=== PATIENT | female | born 1985 | race Caucasian/White ===

== ENCOUNTER 2017-03-18 09:06 | Emergency (ER) | payer MEDICAID ==
[2017-03-18] MEDS ORDERED: NORMAL SALINE 1000 ML 1,000 ML IV ONE (09:31)
[2017-03-18] MEDS ORDERED: OXYCODONE-ACETAMINOPHEN 5-325 MG TABLET PO ONE (09:31)
--- NOTE | 2017-03-18 09:32 | ER Document Report ---
ED Medical Screen (RME) - General Chief Complaint: Flank Pain Stated Complaint: LEFT SIDE BACK AND FLANK PAIN Time Seen by Provider: 03/18/17 09:29 Notes: 32-year-old female with history of Crohn's who presents with 2 days of right flank pain radiating to right lower quadrant. She states nausea and vomiting without fevers or dysuria. No diarrhea. No blood in the stool. No history of kidney stones. Patient denies missing any menstrual periods. TRAVEL OUTSIDE OF THE [place] IN LAST 30 DAYS: No - Related Data Allergies/Adverse Reactions: No Known Allergies Allergy (Verified 03/18/17 09:08) Past Medical History Pulmonary Medical History: Reports: Hx Asthma Denies: Hx Tuberculosis Renal/ Medical History: Denies: Hx Peritoneal Dialysis GI Medical History: Reports: Hx Crohn's Disease - Immunizations Hx Diphtheria, Pertussis, Tetanus Vaccination: Yes Physical Exam - Vital signs Vitals: Temp Pulse Resp BP Pulse Ox 98.6 F 118 H 16 147/84 H 96 03/18/17 09:11 03/18/17 09:11 03/18/17 09:11 03/18/17 09:11 03/18/17 09:11 Course - Vital Signs Vital signs: Temp Pulse Resp BP Pulse Ox 98.6 F 118 H 16 147/84 H 96 03/18/17 09:11 03/18/17 09:11 03/18/17 09:11 03/18/17 09:11 03/18/17 09:11
--- NOTE | 2017-03-18 10:06 | ER Document Report ---
ED GI/ - General Chief Complaint: Flank Pain Stated Complaint: LEFT SIDE BACK AND FLANK PAIN Time Seen by Provider: 03/18/17 09:29 Mode of Arrival: Ambulatory Information source: Patient TRAVEL OUTSIDE OF THE [place] IN LAST 30 DAYS: No - HPI Notes: 03/18/17 10:05 This is a 32-year-old female with history of Crohn's disease who presents with right flank and right lower abdominal pain starting last couple of days becoming severe last night at 1 AM. She's had nausea and vomiting associated with it. Describes it as a constant stabbing type pain that is severe radiating from the right flank to the right abdomen. No dysuria or hematuria. She has chronic constipation but no current blood in her stool noted. Denies fever but has had some chills and tremors. Further denies cough cold symptoms rhinorrhea sore throat chest pain and breathing difficulty Extremity edema - Related Data Allergies/Adverse Reactions: No Known Allergies Allergy (Verified 03/18/17 09:08) Past Medical History - Social History Smoking Status: Current Some Day Smoker Family History: Reviewed & Not Pertinent Patient has suicidal ideation: No Patient has homicidal ideation: No Pulmonary Medical History: Reports: Hx Asthma Denies: Hx Tuberculosis Renal/ Medical History: Denies: Hx Peritoneal Dialysis GI Medical History: Reports: Hx Crohn's Disease Past Surgical History: Denies: Hx Abdominal Surgery, Hx Hysterectomy - Immunizations Hx Diphtheria, Pertussis, Tetanus Vaccination: Yes Review of Systems - Review of Systems -: Yes All other systems reviewed and negative Physical Exam - Vital signs Vitals: Temp Pulse Resp BP Pulse Ox 98.6 F 118 H 16 147/84 H 96 03/18/17 09:11 03/18/17 09:11 03/18/17 09:11 03/18/17 09:11 03/18/17 09:11 Interpretation: Tachycardic - Notes Notes: GENERAL: VS as per nursing doc. Well-appearing, well-nourished and in no acute distress. HEAD: Atraumatic, normocephalic. EYES: Pupils equal round and reactive to light, extraocular movements intact, sclera anicteric, no conjunctival injection or discharge. ENT: Nares patent, oropharynx clear without exudates, slightly dry mucous membranes. NECK: Normal range of motion, supple without lymphadenopathy. LUNGS: Breath sounds clear to auscultation bilaterally and equal. No wheezes rales or rhonchi. HEART: Regular rate and rhythm without murmurs. ABDOMEN: Soft, tenderness in the right CVA region to the right mid and lower abdomen. Normal Bowel sounds. No guarding, no rebound. No masses appreciated. No [place] sign. BACK: Moderate right CVA tenderness. EXTREMITIES: Normal range of motion, no calf tenderness, no edema. NEUROLOGICAL: Cranial nerves grossly intact. Normal speech. Normal sensory and motor exams. No gross cerebellar abnormalities. PSYCH: Normal mood, normal affect. SKIN: Warm, dry, normal turgor, no lesions noted. Course - Vital Signs Vital signs: Temp Pulse Resp BP Pulse Ox 98.6 F 118 H 16 147/84 H 96 03/18/17 09:11 03/18/17 09:11 03/18/17 09:11 03/18/17 09:11 03/18/17 09:11
[2017-03-18] MEDS ORDERED: HYDROMORPHONE HCL INJ/PF 2 MG/ML AMPULE IV ONE (10:08)
[2017-03-18] MEDS ORDERED: ONDANSETRON HCL INJ/PF 4 MG/2 ML SDV IV ONE ×2 (10:08→11:16)
[2017-03-18 10:24] LABS: APPEARANCE,URINE SLIGHTLY-CLOUDY; BILIRUBIN,URINE NEGATIVE (NEGATIVE); GLUCOSE, URINE NEGATIVE (NEGATIVE); KETONES,URINE NEGATIVE (NEGATIVE); LEUKOCYTE ESTERASE,URINE MODERATE (NEGATIVE); NITRITE,URINE POSITIVE (NEGATIVE); PROTEIN,URINE 100 mg/dL (NEGATIVE); UROBILINOGEN,URINE NEGATIVE mg/dL (<2.0)
[2017-03-18 10:28] LABS: ABSOLUTE EOSINOPHILS # (AUTO) 0.2 10^3/uL (0.0-0.6); ABSOLUTE LYMPHOCYTES (AUTO) 0.9 10^3/uL (0.5-4.7); ABSOLUTE NEUT (AUTO) 13.2 10^3/uL (1.7-8.2); BASOPHILS % (AUTO) 0.2 % (0-2); EOSINOPHILS % (AUTO) 1.5 % (0-6); HEMATOCRIT 36.8 % (36.0-47.0); HEMOGLOBIN 12.1 g/dL (12.0-15.5); HGB HCT DIFFERENCE -0.5; LYMPHOCYTES % (AUTO) 5.8 % (13-45); MEAN CORPUSCULAR HEMOGLOBIN 29.1 pg (27.0-33.4); MEAN CORPUSCULAR HGB CONC 32.8 g/dL (32.0-36.0); MEAN CORPUSCULAR VOLUME 89 fl (80-97); MONOCYTES % (AUTO) 6.4 % (3-13); RED BLOOD COUNT 4.14 10^6/uL (3.72-5.28); RED CELL DISTRIBUTION WIDTH 14.5 % (11.5-14.0); SEGMENTED NEUTROPHILS % (AUTO) 86.1 % (42-78); WHITE BLOOD COUNT 15.4 10^3/uL (4.0-10.5)
[2017-03-18 10:29] LABS: ALANINE AMINOTRANSFERASE 20 U/L (9-52); ALBUMIN 4.3 g/dL (3.5-5.0); ALKALINE PHOSPHATASE 87 U/L (38-126); ANION GAP 11 (5-19); ASPARTATE AMINO TRANSFERASE 11 U/L (14-36); BILIRUBIN,DIRECT 0.4 mg/dL (0.0-0.4); BILIRUBIN,TOTAL 0.6 mg/dL (0.2-1.3); BLOOD UREA NITROGEN 8 mg/dL (7-20); CALCIUM 9.8 mg/dL (8.4-10.2); CARBON DIOXIDE 22 mmol/L (22-30); CHLORIDE 107 mmol/L (98-107); CREATININE RESULT 0.66 mg/dL (0.52-1.25); GLUCOSE 104 mg/dL (75-110); LIPASE 86.1 U/L (23-300); POTASSIUM 4.3 mmol/L (3.6-5.0); SODIUM 139.8 mmol/L (137-145); TOTAL PROTEIN 7.7 g/dL (6.3-8.2)
[2017-03-18] MEDS ORDERED: CIPROFLOXACIN HCL 500 MG TABLET PO ONE (10:47)
[2017-03-18] MEDS ORDERED: KETOROLAC TROMETHAMINE INJ/PF 30 MG/1 ML SDV IV ONE (11:16)
[2017-03-18 11:41] VITALS: BP 104/56
== END 2017-03-18 11:42 | disposition home or self-care (01) ==
LOC: ER 09:06
DX: N12 Tubulo-interstitial nephritis, not specified as acute or chronic (principal); R10.9 Unspecified abdominal pain; M54.9 Dorsalgia, unspecified; F17.200 Nicotine dependence, unspecified, uncomplicated
CPT/HCPCS: 99284; 96374; 96375; 36415; 87086; 83690; 85025; 81025; 87088; 80053; 81001; 87186; 74176; J3490; J1885; J1170; J2405

== ENCOUNTER 2019-12-02 17:41 | Emergency (ER) | payer SELFPAY ==
[2019-12-02] MEDS ORDERED: ONDANSETRON 4 MG TAB.RAPDIS PO ONE (19:16)
[2019-12-02] MEDS ORDERED: KETOROLAC TROMETHAMINE 60 MG/2 ML SDV IM ONE (19:16)
--- NOTE | 2019-12-02 19:16 | ER Document Report ---
ED Medical Screen (RME) - General Chief Complaint: Nausea/Vomiting Stated Complaint: THROAT/EAR PAIN,NAUSEA/VOMITING Time Seen by Provider: 12/02/19 19:12 Primary Care Provider: JOVANNI HURTADO MD [Primary Care Provider] - Follow up as needed Mode of Arrival: Ambulatory Information source: Patient Notes: 34-year-old female presented to ED for complaint of sore throat and earache 2 nights ago. She states by morning the pain was severe. She states she has had nausea and vomiting all day today. She states the pain is still severe to her nose and throat. She states she does not know of any fevers. He states she has been throwing up every time she tries to eat or drink today. We will get blood urine and throat culture and have examined by another provider. Will treat with Toradol IM Zofran ODT in the pit area. She states she is on her menstrual cycle right now. I have greeted and performed a rapid initial assessment of this patient. A comprehensive ED assessment and evaluation of the patient, analysis of test results and completion of medical decision making process will be conducted by an additional ED providers. TRAVEL OUTSIDE OF THE [place] IN LAST 30 DAYS: No - Related Data Allergies/Adverse Reactions: No Known Allergies Allergy (Verified 03/18/17 09:08) Past Medical History Pulmonary Medical History: Reports: Hx Asthma Denies: Hx Tuberculosis Renal/ Medical History: Denies: Hx Peritoneal Dialysis GI Medical History: Reports: Hx Crohn's Disease Past Surgical History: Denies: Hx Abdominal Surgery, Hx Hysterectomy - Immunizations Hx Diphtheria, Pertussis, Tetanus Vaccination: Yes Physical Exam - Vital signs Vitals: Temp Pulse Resp BP Pulse Ox 98.5 F 110 H 16 126/71 H 100 12/02/19 18:03 12/02/19 18:03 12/02/19 18:03 12/02/19 18:03 12/02/19 18:03 Course - Vital Signs Vital signs: Temp Pulse Resp BP Pulse Ox 98.5 F 110 H 16 126/71 H 100 12/02/19 18:03 12/02/19 18:03 12/02/19 18:03 12/02/19 18:03 12/02/19 18:03 Doctor's Discharge - Discharge Referrals: JOVANNI HURTADO MD [Primary Care Provider] - Follow up as needed
[2019-12-02 19:55] LABS: ABSOLUTE BASOPHILS # (AUTO) 0.1 10^3/uL (0.0-0.2); ABSOLUTE LYMPHOCYTES (AUTO) 1.3 10^3/uL (0.5-4.7); ABSOLUTE MONOCYTES (AUTO) 0.7 10^3/uL (0.1-1.4); ABSOLUTE NEUT (AUTO) 16.3 10^3/uL (1.7-8.2); BASOPHILS % (AUTO) 0.3 % (0-2); EOSINOPHILS % (AUTO) 0.2 % (0-6); HEMATOCRIT 37.1 % (36.0-47.0); HEMOGLOBIN 12.9 g/dL (12.0-15.5); LYMPHOCYTES % (AUTO) 6.9 % (13-45); MEAN CORPUSCULAR HEMOGLOBIN 31.4 pg (27.0-33.4); MEAN CORPUSCULAR HGB CONC 34.8 g/dL (32.0-36.0); MEAN CORPUSCULAR VOLUME 90 fl (80-97); MONOCYTES % (AUTO) 3.8 % (3-13); PLATELET COUNT 390 10^3/uL (150-450); RED BLOOD COUNT 4.12 10^6/uL (3.72-5.28); RED CELL DISTRIBUTION WIDTH 14.7 % (11.5-14.0); SEGMENTED NEUTROPHILS % (AUTO) 88.8 % (42-78); TOTAL CELLS COUNTED % (AUTO) 100 %; WHITE BLOOD COUNT 18.3 10^3/uL (4.0-10.5)
[2019-12-02 20:10] LABS: APPEARANCE,URINE SLIGHTLY-CLOUDY; BILIRUBIN,URINE NEGATIVE (NEGATIVE); COLOR,URINE AMBER; GLUCOSE, URINE 50 mg/dL (NEGATIVE); KETONES,URINE TRACE mg/dL (NEGATIVE); PROTEIN,URINE 100 mg/dL (NEGATIVE)
[2019-12-02 20:18] LABS: ALBUMIN 4.6 g/dL (3.5-5.0); ALKALINE PHOSPHATASE 100 U/L (38-126); ANION GAP 10 (5-19); ASPARTATE AMINO TRANSFERASE 14 U/L (14-36); BILIRUBIN,TOTAL 0.4 mg/dL (0.2-1.3); BLOOD UREA NITROGEN 13 mg/dL (7-20); CALCIUM 9.9 mg/dL (8.4-10.2); CARBON DIOXIDE 28 mmol/L (22-30); CHLORIDE 99 mmol/L (98-107); GLUCOSE 96 mg/dL (75-110); POTASSIUM 3.9 mmol/L (3.6-5.0); TOTAL PROTEIN 8.1 g/dL (6.3-8.2)
[2019-12-02] MEDS ORDERED: NORMAL SALINE 1000 ML 1,000 ML IV ONE (23:17)
[2019-12-02] MEDS ORDERED: ACETAMINOPHEN 325 MG TABLET PO ONE (23:31)
[2019-12-02] MEDS ORDERED: METOCLOPRAMIDE HCL INJ/PF 10 MG/2 ML SDV IV ONE (23:39)
[2019-12-02] MEDS ORDERED: LIDOCAINE 2% VISCOUS SOLN 15 ML UDCUP PO ONE (23:39)
--- NOTE | 2019-12-03 00:07 | ER Document Report ---
ED General - General Chief Complaint: Nausea/Vomiting Stated Complaint: THROAT/EAR PAIN,NAUSEA/VOMITING Time Seen by Provider: 12/02/19 19:12 Primary Care Provider: JOVANNI HURTADO MD [Primary Care Provider] - Follow up in 3-5 days Mode of Arrival: Ambulatory Notes: 34-year-old female presents with right ear pain, cough, congestion, and sore throat that started 2 days ago. Patient states she had nausea and vomiting that started today. Patient states she does not know if she had a fever. Patient also states associated abdominal cramping. Patient denies any diarrhea, constipation, chills. TRAVEL OUTSIDE OF THE [place] IN LAST 30 DAYS: No - Related Data Allergies/Adverse Reactions: No Known Allergies Allergy (Verified 03/18/17 09:08) Past Medical History - General Information source: Patient - Social History Smoking Status: Current Every Day Smoker Family History: Reviewed & Not Pertinent Patient has suicidal ideation: No Patient has homicidal ideation: No Pulmonary Medical History: Reports: Hx Asthma Denies: Hx Tuberculosis Renal/ Medical History: Denies: Hx Peritoneal Dialysis GI Medical History: Reports: Hx Crohn's Disease Past Surgical History: Denies: Hx Abdominal Surgery, Hx Hysterectomy - Immunizations Hx Diphtheria, Pertussis, Tetanus Vaccination: Yes Review of Systems - Review of Systems Notes: Constitutional: Negative for fever. HENT: Positive for sore throat, earache, nasal congestion, cough. Eyes: Negative for visual changes. Cardiovascular: Negative for chest pain. Respiratory: Negative for shortness of breath. Gastrointestinal: Positive for nausea/vomitingNegative for abdominal pain, vomiting or diarrhea. Genitourinary: Negative for dysuria. Musculoskeletal: Negative for back pain. Skin: Negative for rash. Neurological: Negative for headaches, weakness or numbness. 10 point ROS negative except as marked above and in HPI. Physical Exam - Vital signs Vitals: Temp Pulse Resp BP Pulse Ox 98.5 F 110 H 16 126/71 H 100 12/02/19 18:03 12/02/19 18:03 12/02/19 18:03 12/02/19 18:03 12/02/19 18:03 - Notes Notes: GENERAL: Well-appearing, well-nourished and in no acute distress. HEAD: Atraumatic, normocephalic. EYES: Extraocular movements intact, sclera anicteric, conjunctiva are normal. ENT: TMs normal, nares patent, pharynx erythematous, tonsillar hypertrophy with exudates. Moist mucous membranes. Uvula midline without edema. No QUALITY ASSURANCE TESTER. No muffled voice. No trismus. NECK: Normal range of motion, supple without lymphadenopathy or JVD. LUNGS: Breath sounds clear to auscultation bilaterally and equal. No wheezes rales or rhonchi. HEART: Regular rate and rhythm without murmurs, rubs or gallops. ABDOMEN: Soft, nontender. No guarding, no rebound. No masses appreciated. EXTREMITIES: Normal range of motion, no pitting or edema. No clubbing or cyanos is. NEUROLOGICAL: Cranial nerves II through XII grossly intact. Normal speech, normal gait. PSYCH: Normal mood, normal affect. SKIN: Warm, Dry, normal turgor, no rashes or lesions noted. Course - Re-evaluation Re-evalutation: 12/03/19 nontoxic, well-appearing female. Exam is consistent with strep throat even though rapid strep was negative. No signs of QUALITY ASSURANCE TESTER. No muffled voice. Uvula midline without edema. Abdomen soft nontender. PE is otherwise unremarkable. Patient is afebrile. Patient's white count is 18.3 however in the past and has been between 7-15.6. 12/03/19 01:16 PO tolerant. Pt is feeling better. Strict return precautions given. Patient given close follow-up with PCP. Patient prescribed penicillin and Magic mouthwash. Patient also prescribed Reglan to help with nausea/vomiting. Patient voices understanding and agrees with plan of care. - Vital Signs Vital signs: Temp Pulse Resp BP Pulse Ox 98.4 F 77 20 116/56 L 98 12/03/19 01:29 12/03/19 01:29 12/03/19 01:29 12/03/19 01:29 12/03/19 01:29 - Laboratory Result Diagrams: 12/02/19 19:35 12/02/19 19:35 Laboratory results interpreted by me: 12/02/19 12/02/19 19:35 19:35 WBC 18.3 H RDW 14.7 H Lymph % (Auto) 6.9 L Absolute Neuts (auto) 16.3 H Seg Neutrophils % 88.8 H Urine Protein 100 H Urine Glucose (UA) 50 H Urine Ketones TRACE H Urine Urobilinogen 4.0 H Discharge - Discharge Clinical Impression: Strep throat Nausea & vomiting Qualifiers: Vomiting type: unspecified Vomiting Intractability: unspecified Qualified Code(s): R11.2 - Nausea with vomiting, unspecified Condition: Stable Disposition: HOME, SELF-CARE Instructions: Intravenous (IV) Fluids ([facility]), Reglan ([facility]) Additional Instructions: Please take penicillin as prescribed and finish all doses unless we call to change it based off your throat culture. Please take Reglan as needed for nausea/vomiting. Please use Magic mouthwash as needed for throat pain. Follow- up with your primary care doctor in 2 to 3 days. Return immediately to ER if you start having any worsening symptoms, including worsening sore throat, fever, vomiting not controlled by medication, inability to open your mouth, abdominal pain, chest pain, shortness of breath, or any other symptoms that are concerning to you. Prescriptions: Nystatin/Dexameth/Diphen [Magic Mouthwash ([facility] Formula) Susp] 5 ml PO QID #120 ml Penicillin V Potassium [Penicillin Vk 500 mg Tablet] 500 mg PO BID #20 tablet Metoclopramide HCl [Reglan 10 mg Tablet] 1 - 2 tab PO ASDIR PRN #25 tablet PRN Reason: Referrals: JOVANNI HURTADO MD [Primary Care Provider] - Follow up in 3-5 days
[2019-12-03 01:34] VITALS: BP 116/56
== END 2019-12-03 01:32 | disposition home or self-care (01) ==
LOC: ER 17:41
DX: J02.0 Streptococcal pharyngitis (principal); R11.2 Nausea with vomiting, unspecified; R05 Cough; H92.01 Otalgia, right ear; F17.200 Nicotine dependence, unspecified, uncomplicated
CPT/HCPCS: 99283; 96372; 96361; 96374; 36415; 87070; 87880; 84703; 85025; 80053; 81001; J1885; S0119; J3490; J2765; J7030